=== PATIENT | female | born 1975 | race Caucasian/White ===

== ENCOUNTER 2017-06-27 12:09 | Emergency (ER) | payer MEDICAID ==
[2017-06-27 12:53] VITALS: BP 136/74
--- NOTE | 2017-06-27 13:41 | EDM.PDOC ---
[id number] [id number] WHOLE BODY ACHES FEVER Time Seen by Provider: 06/27/17 13:10 Source of Information: Reports: Patient, Family History Limitations: Reports: No Limitations - History of Present Illness INITIAL COMMENTS - FREE TEXT/NARRATIVE: 41-year-old female that has had intermittent fevers for the past 2 weeks. Aches all over but no specific complaints such as sore throat, cough, shortness of breath, abdominal pain, rashes or joint swelling. She had one emesis last night. She is otherwise healthy. Onset: Unknown/Unsure Severity: Moderate Associated Symptoms: Reports: Fever/Chills, Headaches, Loss of Appetite, Malaise , Nausea/Vomiting. 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 History: Reports: Fracture - Infectious Disease History Infectious Disease History: Reports: Chicken Pox, Shingles - Past Surgical History Female Surgical History: Reports: Section Social & Family History - Tobacco Use Smoking Status *Q: Never Smoker Second Hand Smoke Exposure: No - Caffeine Use Caffeine Use: Reports: Coffee - Alcohol Use Days Per Week of Alcohol Use: 0 - Recreational Drug Use Recreational Drug Use: No ED ROS GENERAL - Review of Systems Review Of Systems: See Below Constitutional: Reports: Fever, Chills, Malaise, Weakness HEENT: Denies: Throat Pain Respiratory: Denies: Shortness of Breath, Cough Cardiovascular: Denies: Chest Pain GI/Abdominal: Reports: Nausea, Vomiting. Denies: Abdominal Pain : Reports: No Symptoms Musculoskeletal: Reports: Muscle Pain Skin: Denies: Rash Neurological: Reports: Headache ED EXAM, GENERAL - Physical Exam Exam: See Below Exam Limited By: No Limitations General Appearance: Alert, No Apparent Distress Eye Exam: Bilateral Eye: Normal Inspection Throat/Mouth: Normal Inspection Head: Atraumatic Neck: Normal Inspection. No: Lymphadenopathy (R), Lymphadenopathy (L) Respiratory/Chest: No Respiratory Distress, Lungs Clear Cardiovascular: Regular Rate, Rhythm GI/Abdominal: Soft, Non-Tender Extremities: Normal Inspection. No: Pedal Edema Neurological: Alert, Oriented, No Motor/Sensory Deficits Psychiatric: Normal Affect, Normal Mood Skin Exam: Warm, Dry Course - Vital Signs Last Recorded V/S: Last Vital Signs Temp 98.6 F 06/27/17 13:08 Pulse 85 06/27/17 13:08 Resp 16 06/27/17 13:08 BP 136/74 06/27/17 13:08 Pulse Ox 95 06/27/17 13:08 - Orders/Labs/Meds Orders: Active Orders 24 hr Category Date Time Status CULTURE STREP A CONFIRMATION [RM] Routine Lab 06/27/17 13:38 Results EHRLICHIA CHAFFEENSIS, IGG&IGM [REF] Stat Lab 06/27/17 14:25 Received LYME AB SCREEN RFLX [REF] Stat Lab 06/27/17 14:25 Received STREP SCRN A RAPID W CULT CONF [RM] Routine Lab 06/27/17 13:38 Results Labs: Laboratory Tests 06/27/17 06/27/17 Range/Units 13:47 13:47 WBC 3.9 L (4.5-11.0) K/uL RBC 4.07 (3.30-5.50) M/uL Hgb 11.9 L (12.0-15.0) g/dL Hct 35.6 L (36.0-48.0) % MCV 88 (80-98) fL MCH 29 (27-31) pg MCHC 33 (32-36) % Plt Count 265 (150-400) K/uL Neut % (Auto) 81 H (36-66) % Lymph % (Auto) 12 L (24-44) % Martin % (Auto) 6 (2-6) % Eos % (Auto) 0 L (2-4) % Baso % (Auto) 1 (0-1) % Sodium 137 L (140-148) mmol/L Potassium 3.8 (3.6-5.2) mmol/L Chloride 103 (100-108) mmol/L Carbon Dioxide 28 (21-32) mmol/L Anion Gap 9.8 (5.0-14.0) mmol/L BUN 14 (7-18) mg/dL Creatinine 0.8 (0.6-1.0) mg/dL Est Cr Clr Drug Dosing 98.05 mL/min Estimated GFR (MDRD) > 60 (>60) Glucose 86 (74-106) mg/dL Calcium 8.3 L (8.5-10.1) mg/dL Total Bilirubin 0.6 (0.2-1.0) mg/dL AST 25 (15-37) U/L ALT 28 (12-78) U/L Alkaline Phosphatase 72 (46-116) U/L Total Protein 7.4 (6.4-8.2) g/dL Albumin 3.3 L (3.4-5.0) g/dL Globulin 4.1 H (2.3-3.5) g/dL Albumin/Globulin Ratio 0.8 L (1.2-2.2) - Re-Assessments/Exams Free Text/Narrative Re-Assessment/Exam: 06/27/17 13:40 Rapid strep was obtained, along with a CBC and CMP. 06/27/17 14:23 Patient remained afebrile. Strep was negative, CBC was remarkable only and her white count was low at 3.7, platelets were normal. CMP was normal, liver enzymes were normal. Patient likely has a viral syndrome and will improve with time, no treatment is necessary at this time. Departure - Departure Time of Disposition: 14:35 Disposition: Home, Self-Care 01 Condition: Good Clinical Impression: Viral syndrome, Myalgia - Discharge Information Instructions: Muscle Pain, Adult Referrals: Sky Mares MD [Primary Care Provider] - Forms: ED Department Discharge Care Plan Goals: Rest, fluids, a regular dose of ibuprofen or naproxen should help. Return anytime if worsening. We will be in touch with your additional tests when available. - My Orders Last 24 Hours: My Active Orders 06/27/17 13:38 CULTURE STREP A CONFIRMATION [RM] Routine STREP SCRN A RAPID W CULT CONF [RM] Routine 06/27/17 14:25 EHRLICHIA CHAFFEENSIS, IGG&IGM [REF] Stat LYME AB SCREEN RFLX [REF] Stat - Assessment/Plan Last 24 Hours: My Active Orders 06/27/17 13:38 CULTURE STREP A CONFIRMATION [RM] Routine STREP SCRN A RAPID W CULT CONF [RM] Routine 06/27/17 14:25 EHRLICHIA CHAFFEENSIS, IGG&IGM [REF] Stat LYME AB SCREEN RFLX [REF] Stat
== END 2017-06-27 14:36 | disposition home or self-care (01) ==
LOC: JP.ED 12:09
DX: M79.1 Myalgia (principal); B34.9 Viral infection, unspecified
CPT/HCPCS: 36415; 80053; 85025; 86618; 86666; 86666-59; 87081; 87430; 99284

== ENCOUNTER 2017-08-28 15:05 | Emergency (ER) | payer MEDICAID ==
[2017-08-28 16:28] VITALS: BP 145/91
--- NOTE | 2017-08-28 17:07 | EDM.PDOC ---
ED HPI GENERAL MEDICAL PROBLEM - General Chief Complaint: Genitourinary Problem Stated Complaint: UTI Time Seen by Provider: 08/28/17 16:45 Source of Information: Reports: Patient History Limitations: Reports: No Limitations - History of Present Illness INITIAL COMMENTS - FREE TEXT/NARRATIVE: Makenzie is an otherwise healthy 41-year-old female who presents to the emergency department today with 2 day history of pelvic pain and dysuria. Patient denies any fever, chills, nausea, vomiting. Patient has been staying well-hydrated. Patient reports that this is her fourth urinary tract infection in the last year which is unusual for her. Patient denies any vaginal bleeding or discharge. 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 ED EXAM, RENAL/ - Physical Exam Exam: See Below Exam Limited By: No Limitations General Appearance: Alert, WD/WN, No Apparent Distress Respiratory/Chest: No Respiratory Distress Cardiovascular: Normal Peripheral Pulses GI/Abdominal: Normal Bowel Sounds, Soft, Non-Tender (Female) Exam: Other (Right CVA tenderness, mild) Extremities: Normal Inspection Neurological: Alert, Oriented, CN II-XII Intact Psychiatric: Normal Affect, Normal Mood Skin Exam: Warm, Dry, Intact Course - Vital Signs Last Recorded V/S: Last Vital Signs Temp 36.7 C 08/28/17 16:27 Pulse 66 08/28/17 16:27 Resp 14 08/28/17 16:27 BP 145/91 H 08/28/17 16:27 Pulse Ox 98 08/28/17 16:27 Makenzie is an otherwise healthy 41-year-old female who presents to the emergency department today with 2 day history of dysuria and pelvic pain. Patient on exam is well-hydrated, she is nontoxic appearing. Urinalysis does confirm UTI with moderate leukocytes esterase and packed WBCs. Urine culture is pending. Prior urine culture back in April was found to be contaminated in no sensitivities were obtained. I am going to start patient on a 5 day course of ciprofloxacin pending urine culture today. She can follow-up with her primary care provider early this next week, hydration was encouraged, reasons to return to the emergency department were discussed, patient was agreeable and discharged in stable condition. - Orders/Labs/Meds Orders: Active Orders 24 hr Category Date Time Status CULTURE URINE [RM] Stat Lab 08/28/17 16:55 Received Labs: Laboratory Tests 08/28/17 Range/Units 16:15 Urine Color Yellow Urine Appearance Cloudy Urine pH 5.0 (4.5-8.0) Ur Specific Tucker 1.030 (1.008-1.030) Urine Protein 30 H (NEGATIVE) mg/dL Urine Glucose (UA) Normal (NEGATIVE) mg/dL Urine Ketones Negative (NEGATIVE) mg/dL Urine Occult Blood Large (NEGATIVE) Urine Nitrite Negative (NEGATIVE) Urine Bilirubin Negative (NEGATIVE) Urine Urobilinogen Normal (NORMAL) mg/dL Ur Leukocyte Esterase Moderate (NEGATIVE) Urine RBC 5-10 H (0-5) Urine WBC Semi-packed H (0-5) Ur Epithelial Cells Few Amorphous Sediment Not seen Urine Bacteria Many Urine Mucus Few Departure - Departure Time of Disposition: 17:30 Disposition: Home, Self-Care 01 Condition: Good Clinical Impression: UTI, Urinary tract infectious disease - Discharge Information Instructions: Urinary Tract Infection, Adult, [id number] Referrals: Sky Mares MD [Primary Care Provider] - Additional Instructions: Makenzie, your urine culture from April was contaminated and did not come back with any sensitivities that would guide antibiotic coverage. I am going to start you on a 5 day course of ciprofloxacin, if your urine culture from today returns that this is not the antibiotic you should be on, you will get a phone call and antibiotics will be switched at that time. Make sure you are staying very well-hydrated, I would recommend a daily probiotic. I would recommend he following up with your primary care provider early this next week. - My Orders Last 24 Hours: My Active Orders 08/28/17 16:55 CULTURE URINE [RM] Stat - Assessment/Plan Last 24 Hours: My Active Orders 08/28/17 16:55 CULTURE URINE [RM] Stat
== END 2017-08-28 17:26 | disposition home or self-care (01) ==
LOC: JP.ED 15:05
DX: N39.0 Urinary tract infection, site not specified (principal)
CPT/HCPCS: 81001; 87086; 87088; 87186; 99284

== ENCOUNTER 2017-10-27 23:58 | Emergency (ER) | payer MEDICAID ==
[2017-10-28] MEDS ORDERED: Acetaminophen 325 MG Tab PO ONE (01:11)
--- NOTE | 2017-10-28 01:12 | EDM.PDOC ---
ED HPI GENERAL MEDICAL PROBLEM - General Chief Complaint: ENT Problem Stated Complaint: POSSIBLE STREP Time Seen by Provider: 10/28/17 01:08 Source of Information: Reports: Patient History Limitations: Reports: No Limitations - History of Present Illness INITIAL COMMENTS - FREE TEXT/NARRATIVE: pt arrived with a sore throat. She has shaking chills. She has body aches. She has a slight cough. Onset: Other ( last nite she began to feel ill. 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 - Infectious Disease History Infectious Disease History: Reports: Chicken Pox, Shingles - Past Surgical History Female Surgical History: Reports: Section Social & Family History - Tobacco Use Smoking Status *Q: Unknown Ever Smoked Second Hand Smoke Exposure: No - Caffeine Use Caffeine Use: Reports: Coffee - Alcohol Use Days Per Week of Alcohol Use: 0 - Recreational Drug Use Recreational Drug Use: No ED ROS ENT - Review of Systems Review Of Systems: See Below Constitutional: Reports: Chills, Malaise HEENT: Reports: Throat Pain Respiratory: Reports: Cough Cardiovascular: Reports: No Symptoms Endocrine: Reports: No Symptoms GI/Abdominal: Reports: No Symptoms : Reports: No Symptoms Musculoskeletal: Reports: No Symptoms Skin: Reports: No Symptoms ED EXAM, ENT - Physical Exam Exam: See Below Text/Narrative:: pt arrived with chills and body aches. She has a sore throat. She has a slight cough. Exam Limited By: No Limitations General Appearance: Alert, Mild Distress Ears: Normal TMs Nose: Normal Inspection Mouth/Throat: Pharyngeal Erythema, Throat Swelling Head: Atraumatic Neck: Lymphadenopathy (R), Lymphadenopathy (L) Respiratory/Chest: No Respiratory Distress Cardiovascular: Regular Rate, Rhythm GI/Abdominal: Soft, Non-Tender (Female) Exam: Deferred Rectal (Female) Exam: Deferred Back: Normal Inspection Extremities: Normal Inspection Neurological: Alert, Oriented, Normal Cognition Psychiatric: Normal Affect Course - Vital Signs Last Recorded V/S: Last Vital Signs Temp 38.1 C 10/28/17 01:48 Pulse 100 10/28/17 01:48 Resp 14 10/28/17 01:48 BP 126/74 10/28/17 01:48 Pulse Ox 94 L 10/28/17 01:48 - Orders/Labs/Meds Orders: Active Orders 24 hr Category Date Time Status STREP SCRN A RAPID W CULT CONF [RM] Stat Lab 10/28/17 01:15 Results Labs: Laboratory Tests 10/28/17 Range/Units 00:40 WBC 5.4 (4.5-11.0) K/uL RBC 4.15 (3.30-5.50) M/uL Hgb 12.3 (12.0-15.0) g/dL Hct 36.4 (36.0-48.0) % MCV 88 (80-98) fL MCH 30 (27-31) pg MCHC 34 (32-36) % Plt Count 199 (150-400) K/uL Neut % (Auto) 69 H (36-66) % Lymph % (Auto) 17 L (24-44) % Alger % (Auto) 13 H (2-6) % Eos % (Auto) 1 L (2-4) % Baso % (Auto) 0 (0-1) % Meds: Medications Discontinued Medications Generic Name Dose Route Start Last Admin Trade Name Davionq PRN Reason Stop Dose Admin Acetaminophen 650 mg 10/28/17 01:11 10/28/17 01:47 Tylenol PO 10/28/17 01:12 650 mg NOW ONE Administration Ceftriaxone Sodium 1 gm/ 0 gm 10/28/17 01:48 Lidocaine HCl 2.1 ml IM 10/28/17 01:49 ONETIME ONE - Re-Assessments/Exams Free Text/Narrative Re-Assessment/Exam: 10/28/17 01:53 pt had a normal wbc and she had a positive strept. She was given rocephen 1 gm im. Departure - Departure Time of Disposition: 01:54 Disposition: Home, Self-Care 01 Condition: Fair Clinical Impression: Streptococcus pharyngitis - Discharge Information Referrals: Sky Mares MD [Primary Care Provider] - Forms: ED Department Discharge Care Plan Goals: push fluids, tylenol for elevated temp, amoxicillin 500mg 2 tabs bid. - My Orders Last 24 Hours: My Active Orders 10/28/17 01:15 STREP SCRN A RAPID W CULT CONF [RM] Stat - Assessment/Plan Last 24 Hours: My Active Orders 10/28/17 01:15 STREP SCRN A RAPID W CULT CONF [RM] Stat
[2017-10-28] MEDS ORDERED: cefTRIAXone 1 GM, Lidocaine 1% 2.1 ML IM ONE ×2 (01:48)
[2017-10-28 01:50] VITALS: BP 126/74
== END 2017-10-28 02:02 | disposition home or self-care (01) ==
LOC: JP.ED 23:58
DX: J02.0 Streptococcal pharyngitis (principal)
CPT/HCPCS: 36415; 85025; 87430; 96372; 99283; A9270; J0696

== ENCOUNTER 2017-12-09 23:17 | Emergency (ER) | payer MEDICAID ==
[2017-12-09] MEDS ORDERED: Lactated Ringers 1,000 ML IV ONE (23:49)
[2017-12-09] MEDS ORDERED: Metoclopramide 10 MG/2 ML SDV IVPUSH ONE (23:49)
[2017-12-09 23:50] VITALS: BP 137/76
[2017-12-09] MEDS ORDERED: Acetaminophen 500 MG Tab PO ONE (23:50)
--- NOTE | 2017-12-09 23:56 | EDM.PDOC ---
ED HPI GENERAL MEDICAL PROBLEM - General Chief Complaint: Gastrointestinal Problem Stated Complaint: NAUSEA / VOMITING Time Seen by Provider: 12/09/17 23:40 Source of Information: Reports: Patient, RN History Limitations: Reports: No Limitations - History of Present Illness INITIAL COMMENTS - FREE TEXT/NARRATIVE: 42 yo female presents with nausea and vomiting. Not able to keep much down today. No diarrhea or fever. Is 6 weeks . Nausea has progressed for the past week. Has not discussed with her primary. Is a little dizzy with standing and states her urine is dark. Onset: Gradual Onset Date: 12/02/17 Duration: Day(s):, Getting Worse Location: Reports: Abdomen Quality: Reports: Other (Intermittent RLQ cramping) Severity: Mild Improves with: Reports: None Worsens with: Reports: Other (coughing) Context: Reports: Other (6 weeks ) Associated Symptoms: Reports: Headaches, Nausea/Vomiting. 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 - Infectious Disease History Infectious Disease History: Reports: Chicken Pox, Shingles - Past Surgical History HEENT Surgical History: Reports: Cataract Surgery Female Surgical History: Reports: Section Social & Family History - Tobacco Use Smoking Status *Q: Former Smoker Used Tobacco, but Quit: Yes Month Tobacco Last Used: 25 years Second Hand Smoke Exposure: No - Caffeine Use Caffeine Use: Reports: Coffee - Alcohol Use Days Per Week of Alcohol Use: 0 - Recreational Drug Use Recreational Drug Use: No ED ROS GENERAL - Review of Systems Review Of Systems: See Below Constitutional: Reports: No Symptoms HEENT: Reports: No Symptoms Respiratory: Reports: No Symptoms Cardiovascular: Reports: Lightheadedness (with standing) Endocrine: Reports: No Symptoms GI/Abdominal: Reports: Abdominal Pain (mild, intermittent, RLQ cramping), Nausea , Vomiting. Denies: Black Stool, Bloody Stool, Constipation, Diarrhea, Distension, Hematochezia, Melena : Reports: No Symptoms Musculoskeletal: Reports: No Symptoms Skin: Reports: No Symptoms Neurological: Reports: No Symptoms ED EXAM, GI/ABD - Physical Exam Exam: See Below Exam Limited By: No Limitations General Appearance: Alert, WD/WN, No Apparent Distress Eyes: Bilateral: Normal Appearance Ears: Normal External Exam, Normal Canal, Hearing Grossly Normal, Normal TMs Nose: Normal Inspection, Normal Mucosa, No Blood Throat/Mouth: Normal Inspection, Normal Lips, Normal Oropharynx, Normal Voice, No Airway Compromise Head: Atraumatic, Normocephalic Neck: Normal Inspection, Supple Respiratory/Chest: No Respiratory Distress, Lungs Clear, Normal Breath Sounds, No Accessory Muscle Use Cardiovascular: Regular Rate, Rhythm GI/Abdominal Exam: Normal Bowel Sounds, Soft, No Distention, Tender (mild RLQ tenderness), Other (gravid) Back Exam: Normal Inspection. No: CVA Tenderness (R), CVA Tenderness (L) Extremities: Normal Inspection, Normal Range of Motion, Non-Tender, No Pedal Edema Neurological: Alert, Oriented, CN II-XII Intact, Normal Cognition, No Motor/ Sensory Deficits Psychiatric: Normal Affect, Normal Mood Skin Exam: Warm, Dry, Intact, Normal Color, No Rash Lymphatic: No Adenopathy Course - Vital Signs Text/Narrative:: LR 1000 ml IV, Reglan 10 mg IV, acetaminophen 1000 mg po, KCL 20 meq po Last Recorded V/S: Last Vital Signs Temp 37.1 C 12/09/17 23:31 Pulse 75 12/09/17 23:31 Resp 20 12/09/17 23:31 BP 137/76 12/09/17 23:31 Pulse Ox 100 12/09/17 23:31 - Orders/Labs/Meds Orders: Active Orders 24 hr Category Date Time Status Lactated Ringers [Ringers, Lactated] 1,000 ml Med 12/09/17 23:49 Active IV BOLUS Potassium Chloride [Klor-Con M20] Med 12/10/17 00:15 Once 20 meq PO ONETIME ONE Medication Orders Lactated Ringer's (Ringers, Lactated) 1,000 mls @ 1,000 mls/hr IV BOLUS ONE Stop: 12/10/17 00:48 Last Admin: 12/10/17 00:04 Dose: 1,000 mls/hr Labs: Laboratory Tests 12/09/17 12/09/17 Range/Units 23:58 23:58 WBC 6.8 (4.5-11.0) K/uL RBC 4.34 (3.30-5.50) M/uL Hgb 13.0 (12.0-15.0) g/dL Hct 37.4 (36.0-48.0) % MCV 86 (80-98) fL MCH 30 (27-31) pg MCHC 35 (32-36) % Plt Count 245 (150-400) K/uL Sodium 138 L (140-148) mmol/L Potassium 3.4 L (3.6-5.2) mmol/L Chloride 103 (100-108) mmol/L Carbon Dioxide 24 (21-32) mmol/L Anion Gap 14.4 H (5.0-14.0) mmol/L BUN 16 (7-18) mg/dL Creatinine 0.7 (0.6-1.0) mg/dL Est Cr Clr Drug Dosing 110.90 mL/min Estimated GFR (MDRD) > 60 (>60) Glucose 139 H (74-106) mg/dL Calcium 8.4 L (8.5-10.1) mg/dL Meds: Medications Generic Name Dose Route Start Last Admin Trade Name Freq PRN Reason Stop Dose Admin Lactated Ringer's 1,000 mls @ 1,000 mls/hr 12/09/17 23:49 12/10/17 00:04 Ringers, Lactated IV 12/10/17 00:48 1,000 mls/hr BOLUS ONE Administration Discontinued Medications Generic Name Dose Route Start Last Admin Trade Name Freq PRN Reason Stop Dose Admin Acetaminophen 1,000 mg 12/09/17 23:50 Tylenol Extra Strength PO 12/09/17 23:51 ONETIME ONE Metoclopramide HCl 10 mg 12/09/17 23:49 12/10/17 00:05 Reglan IVPUSH 12/09/17 23:50 10 mg ONETIME ONE Administration Departure - Departure Time of Disposition: 01:05 Disposition: Home, Self-Care 01 Condition: Fair Clinical Impression: Nausea and vomiting Qualifiers: Vomiting type: unspecified Vomiting Intractability: non-intractable Qualified Code(s): R11.2 - Nausea with vomiting, unspecified - Discharge Information Referrals: Sky Mares MD [Primary Care Provider] - Forms: ED Department Discharge - My Orders Last 24 Hours: My Active Orders 12/09/17 23:49 Lactated Ringers [Ringers, Lactated] 1,000 ml IV BOLUS 12/10/17 00:15 Potassium Chloride [Klor-Con M20] 20 meq PO ONETIME ONE - Assessment/Plan Last 24 Hours: My Active Orders 12/09/17 23:49 Lactated Ringers [Ringers, Lactated] 1,000 ml IV BOLUS 12/10/17 00:15 Potassium Chloride [Klor-Con M20] 20 meq PO ONETIME ONE
[2017-12-10] MEDS ORDERED: Potassium Chloride 20 MEQ Tab.ER PO ONE (00:15)
== END 2017-12-10 01:15 | disposition home or self-care (01) ==
LOC: JP.ED 23:17
DX: R11.2 Nausea with vomiting, unspecified (principal); Z87.891 Personal history of nicotine dependence
CPT/HCPCS: 36415; 80048; 85027; 96361; 96374; 99284; A9270; J2765; J7120

== ENCOUNTER 2017-12-17 22:13 | Emergency (ER) | payer MEDICAID ==
[2017-12-17] MEDS ORDERED: Sodium Chloride 0.9% 10 ML Syringe FLUSH PRN (23:05)
[2017-12-17] MEDS ORDERED: Ondansetron 4 MG/2 ML SDV IVPUSH ONE (23:05)
[2017-12-17] MEDS ORDERED: Lactated Ringers 1,000 ML IV ONE (23:05)
--- NOTE | 2017-12-17 23:13 | EDM.PDOC ---
ED HPI GENERAL MEDICAL PROBLEM - General Chief Complaint: Abdominal Pain Stated Complaint: FLU? Time Seen by Provider: 12/17/17 22:50 Source of Information: Reports: Patient, RN Notes Reviewed History Limitations: Reports: No Limitations - History of Present Illness INITIAL COMMENTS - FREE TEXT/NARRATIVE: 42-year-old female presents emergency department today plate nausea and vomiting with abdominal cramping she estimates she is about 7 weeks she has not had her first OB appointment, she is a Abdomen Pain Score (Numeric/FACES): 2 - Related Data Allergies Allergy/AdvReac Type Severity Reaction Status Date / Time No Known Allergies Allergy Verified 12/17/17 22:36 Home Meds: Home Meds Doxylamine Succinate [Unisom Sleep Aid] 25 mg PO BEDTIME PRN 12/17/17 [History] Ondansetron [Zofran ODT] 4 mg PO Q6H PRN 12/17/17 [History] Pyridoxine HCl [Vitamin B-6] 100 mg PO DAILY 12/17/17 [History] Past Medical History HEENT History: Reports: Cataract, Impaired 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 - Infectious Disease History Infectious Disease History: Reports: Chicken Pox - Past Surgical History HEENT Surgical History: Reports: Cataract Surgery Female Surgical History: Reports: Section Social & Family History - Tobacco Use Smoking Status *Q: Former Smoker Used Tobacco, but Quit: Yes Month Tobacco Last Used: 25 years Second Hand Smoke Exposure: No - Caffeine Use Caffeine Use: Reports: Coffee - Alcohol Use Days Per Week of Alcohol Use: 0 - Recreational Drug Use Recreational Drug Use: No ED ROS GENERAL - Review of Systems Review Of Systems: See Below Constitutional: Reports: No Symptoms HEENT: Reports: No Symptoms Respiratory: Reports: No Symptoms Cardiovascular: Reports: No Symptoms GI/Abdominal: Reports: Abdominal Pain, Nausea, Vomiting : Reports: No Symptoms Musculoskeletal: Reports: No Symptoms ED EXAM - Physical Exam Exam: See Below Exam Limited By: No Limitations General Appearance: Alert, WD/WN, No Apparent Distress Eye Exam: Bilateral Eye: Normal Inspection, PERRL Ears: Normal External Exam, Normal Canal, Hearing Grossly Normal, Normal TMs Nose: Normal Inspection, Normal Mucosa, No Blood Throat/Mouth: Normal Inspection, Normal Lips, Normal Teeth, Normal Gums, Normal Oropharynx, Normal Voice, No Airway Compromise Head: Atraumatic, Normocephalic Neck: Normal Inspection, Supple, Non-Tender, Full Range of Motion Respiratory/Chest: No Respiratory Distress, Lungs Clear, Normal Breath Sounds, No Accessory Muscle Use Cardiovascular: Regular Rate, Rhythm, No Murmur GI/Abdominal Exam: Soft, Non-Tender Heart Tones: Not [place] Course - Vital Signs Last Recorded V/S: Last Vital Signs Temp 97.3 F 12/17/17 22:44 Pulse 63 12/18/17 01:30 Resp 16 12/18/17 01:30 BP 105/64 12/18/17 01:30 Pulse Ox 96 12/18/17 01:30 - Orders/Labs/Meds Orders: Active Orders 24 hr Category Date Time Status Peripheral IV Care [RC] . DIRECTED Care 12/17/17 23:05 Active Sodium Chloride 0.9% [Saline Flush] Med 12/17/17 23:05 Active 10 ml FLUSH ASDIRECTED PRN Peripheral IV Insertion Adult [OM.PC] Urgent Oth 12/17/17 23:05 Ordered Medication Orders Sodium Chloride (Saline Flush) 10 ml FLUSH ASDIRECTED PRN PRN Reason: Keep Vein Open Labs: Laboratory Tests 12/17/17 12/17/17 12/17/17 Range/Units 23:20 23:20 23:20 WBC 8.4 (4.5-11.0) K/uL RBC 4.38 (3.30-5.50) M/uL Hgb 13.6 (12.0-15.0) g/dL Hct 37.4 (36.0-48.0) % MCV 85 (80-98) fL MCH 31 (27-31) pg MCHC 36 (32-36) % Plt Count 217 (150-400) K/uL Neut % (Auto) 76 H (36-66) % Lymph % (Auto) 15 L (24-44) % [place] % (Auto) 7 H (2-6) % Eos % (Auto) 1 L (2-4) % Baso % (Auto) 0 (0-1) % Sodium 138 L (140-148) mmol/L Potassium 3.8 (3.6-5.2) mmol/L Chloride 103 (100-108) mmol/L Carbon Dioxide 21 (21-32) mmol/L Anion Gap 17.8 H (5.0-14.0) mmol/L BUN 13 (7-18) mg/dL Creatinine 0.6 (0.6-1.0) mg/dL Est Cr Clr Drug Dosing TNP Estimated GFR (MDRD) > 60 (>60) Glucose 71 L (74-106) mg/dL Calcium 8.6 (8.5-10.1) mg/dL HCG, Quant 309979 H (0-6) mIU/mL Urine Color Urine Appearance Urine pH (4.5-8.0) Ur Specific [place] (1.008-1.030) Urine Protein (NEGATIVE) mg/dL Urine Glucose (UA) (NEGATIVE) mg/dL Urine Ketones (NEGATIVE) mg/dL Urine Occult Blood (NEGATIVE) Urine Nitrite (NEGATIVE) Urine Bilirubin (NEGATIVE) Urine Urobilinogen (NORMAL) mg/dL Ur Leukocyte Esterase (NEGATIVE) Urine RBC (0-5) Urine WBC (0-5) Ur Epithelial Cells Amorphous Sediment Urine Bacteria Urine Mucus 12/18/17 Range/Units 01:08 WBC (4.5-11.0) K/uL RBC (3.30-5.50) M/uL Hgb (12.0-15.0) g/dL Hct (36.0-48.0) % MCV (80-98) fL MCH (27-31) pg MCHC (32-36) % Plt Count (150-400) K/uL Neut % (Auto) (36-66) % Lymph % (Auto) (24-44) % [place] % (Auto) (2-6) % Eos % (Auto) (2-4) % Baso % (Auto) (0-1) % Sodium (140-148) mmol/L Potassium (3.6-5.2) mmol/L Chloride (100-108) mmol/L Carbon Dioxide (21-32) mmol/L Anion Gap (5.0-14.0) mmol/L BUN (7-18) mg/dL Creatinine (0.6-1.0) mg/dL Est Cr Clr Drug Dosing Estimated GFR (MDRD) (>60) Glucose (74-106) mg/dL Calcium (8.5-10.1) mg/dL HCG, Quant (0-6) mIU/mL Urine Color Yellow Urine Appearance Cloudy Urine pH 6.0 (4.5-8.0) Ur Specific [place] 1.020 (1.008-1.030) Urine Protein Negative (NEGATIVE) mg/dL Urine Glucose (UA) Normal (NEGATIVE) mg/dL Urine Ketones 50 H (NEGATIVE) mg/dL Urine Occult Blood Negative (NEGATIVE) Urine Nitrite Negative (NEGATIVE) Urine Bilirubin Negative (NEGATIVE) Urine Urobilinogen Normal (NORMAL) mg/dL Ur Leukocyte Esterase Negative (NEGATIVE) Urine RBC 0-5 (0-5) Urine WBC 0-5 (0-5) Ur Epithelial Cells Moderate Amorphous Sediment Not seen Urine Bacteria Moderate Urine Mucus Moderate Meds: Medications Generic Name Dose Route Start Last Admin Trade Name Freq PRN Reason Stop Dose Admin Sodium Chloride 10 ml 12/17/17 23:05 Saline Flush FLUSH ASDIRECTED PRN Keep Vein Open Discontinued Medications Generic Name Dose Route Start Last Admin Trade Name Freq PRN Reason Stop Dose Admin Lactated Ringer's 1,000 mls @ 999 mls/hr 12/17/17 23:05 12/17/17 23:20 Ringers, Lactated IV 12/18/17 00:05 999 mls/hr BOLUS ONE Administration Lactated Ringer's 1,000 mls @ 999 mls/hr 12/18/17 03:03 12/18/17 03:14 Ringers, Lactated IV 12/18/17 04:03 999 mls/hr BOLUS ONE Administration Metoclopramide HCl 10 mg 12/18/17 03:03 12/18/17 03:43 Reglan PO 12/18/17 03:04 10 mg ONETIME ONE Administration Ondansetron HCl 4 mg 12/17/17 23:05 12/17/17 23:23 Zofran IVPUSH 12/17/17 23:06 4 mg ONETIME ONE Administration Departure - Departure Time of Disposition: 05:53 Disposition: Home, Self-Care 01 Condition: Fair Clinical Impression: Nausea and vomiting Qualifiers: Vomiting type: unspecified Vomiting Intractability: non-intractable Qualified Code(s): R11.2 - Nausea with vomiting, unspecified Qualifiers: Weeks of gestation: less than 8 weeks Qualified Code(s): Z3A.01 - Less than 8 weeks gestation of - Discharge Information Referrals: Sky Mares MD [Primary Care Provider] - Forms: ED Department Discharge Additional Instructions: Continue to use Zofran as provided for nausea and vomiting symptoms Please followup with your primary care provider on Wednesday, please call return to the emergency department with worsening of symptoms. - My Orders Last 24 Hours: My Active Orders 12/17/17 23:05 Peripheral IV Care [RC] . DIRECTED Sodium Chloride 0.9% [Saline Flush] 10 ml FLUSH ASDIRECTED PRN Peripheral IV Insertion Adult [OM.PC] Urgent - Assessment/Plan Last 24 Hours: My Active Orders 12/17/17 23:05 Peripheral IV Care [RC] . DIRECTED Sodium Chloride 0.9% [Saline Flush] 10 ml FLUSH ASDIRECTED PRN Peripheral IV Insertion Adult [OM.PC] Urgent Plan: Assessment Acuity = acute Site and laterality = nausea and vomiting complicated in first trimester Etiology = probably related to Manifestations = dehydration Location of injury = Home Lab values = CBC, CMP unremarkable quantitative beta hCG consistent with progressive , urinalysis consistent with intravascular volume depletion specific gravity 1.02 Plan She had some improvement with combination Zofran 2 L fluids and Reglan but is still feeling nauseated, she is willing to go home she has a follow-up appointment with her primary care on Wednesday will return to the emergency department if no improvement This note was dictated using [employer] voice recognition software please call with any questions on syntax or jah.
[2017-12-18] MEDS ORDERED: Lactated Ringers 1,000 ML IV ONE (03:03)
[2017-12-18] MEDS ORDERED: Metoclopramide 10 MG Tab PO ONE (03:03)
[2017-12-18 06:36] VITALS: BP 104/64
== END 2017-12-18 06:36 | disposition home or self-care (01) ==
LOC: JP.ED 22:13
DX: O21.9 Vomiting of pregnancy, unspecified (principal); Z87.891 Personal history of nicotine dependence; Z79.899 Other long term (current) drug therapy; Z3A.01 Less than 8 weeks gestation of pregnancy
CPT/HCPCS: 36415; 80048; 81001; 84702; 85025; 96361; 96374; 99284; A9270; J2405; J7120

== ENCOUNTER 2017-12-26 18:24 | Emergency (ER) | payer MEDICAID ==
[2017-12-26 18:59] VITALS: BP 131/74
[2017-12-26] MEDS ORDERED: Ondansetron 4 MG/2 ML SDV IVPUSH ONE ×2 (19:12→19:46)
[2017-12-26] MEDS ORDERED: Sodium Chloride 0.9% 1,000 ML IV SCH ×2 (19:15→20:00)
--- NOTE | 2017-12-26 19:47 | EDM.PDOC ---
ED HPI GENERAL MEDICAL PROBLEM - General Chief Complaint: Gastrointestinal Problem Stated Complaint: NAUSEA,VOMITING Time Seen by Provider: 12/26/17 18:55 Source of Information: Reports: Patient History Limitations: Reports: No Limitations - History of Present Illness INITIAL COMMENTS - FREE TEXT/NARRATIVE: pt is 9.5 weeks and she has marked vomiting with the . She has been hydrated in the past in the ER. Onset: Gradual Duration: Day(s): Location: Reports: Other ( hyperemesis of . 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 - Infectious Disease History Infectious Disease History: Reports: Chicken Pox - Past Surgical History HEENT Surgical History: Reports: Cataract Surgery Female Surgical History: Reports: Section Social & Family History - Tobacco Use Smoking Status *Q: Never Smoker Used Tobacco, but Quit: Yes Month Tobacco Last Used: 25 years Second Hand Smoke Exposure: No - Caffeine Use Caffeine Use: Reports: Coffee - Alcohol Use Days Per Week of Alcohol Use: 0 - Recreational Drug Use Recreational Drug Use: No ED ROS GENERAL - Review of Systems Review Of Systems: See Below Constitutional: Reports: No Symptoms HEENT: Reports: No Symptoms Respiratory: Reports: No Symptoms Cardiovascular: Reports: No Symptoms Endocrine: Reports: No Symptoms GI/Abdominal: Reports: Nausea, Vomiting, Other (Pt is 9.5 weeks . ) : Reports: No Symptoms Skin: Reports: No Symptoms Neurological: Reports: Dizziness ED EXAM - Physical Exam Exam: See Below Text/Narrative:: Pt arrived with a history of being 9,5 weeks and having hyperemesis of . She feels very dehydrated at this time. Exam Limited By: No Limitations General Appearance: Alert, Anxious, Other (pupils equal and reactive. ) Ears: Normal TMs Nose: Normal Inspection Throat/Mouth: Normal Inspection Head: Atraumatic Neck: Normal Inspection Respiratory/Chest: No Respiratory Distress Cardiovascular: Regular Rate, Rhythm, Tachycardia GI/Abdominal Exam: Soft, Other ( mild tenderness from vomiting. ) Rectal Exam: Deferred Back Exam: Normal Inspection Extremities: Normal Inspection Course - Vital Signs Last Recorded V/S: Last Vital Signs Temp 37.2 C 12/26/17 19:08 Pulse 82 12/26/17 19:08 Resp 14 12/26/17 19:08 BP 131/74 12/26/17 19:08 Pulse Ox 99 12/26/17 19:08 - Orders/Labs/Meds Orders: Active Orders 24 hr Category Date Time Status Fingers Second Digit Lt F1 [CR] Stat Exams 12/26/17 18:25 Stop Req CULTURE URINE [RM] Stat Lab 12/26/17 21:57 Uncollected Sodium Chloride 0.9% [Normal Saline] 1,000 ml Med 12/26/17 19:15 Active IV ASDIRECTED Sodium Chloride 0.9% [Normal Saline] 1,000 ml Med 12/26/17 20:00 Active IV ASDIRECTED cefTRIAXone [Rocephin] 1 gm Med 12/26/17 21:58 Active Sodium Chloride 0.9% [Normal Saline] 50 ml IV ONETIME Medication Orders Sodium Chloride (Normal Saline) 1,000 mls @ 999 mls/hr IV ASDIRECTED [facility] Last Admin: 12/26/17 19:21 Dose: 999 mls/hr Sodium Chloride (Normal Saline) 1,000 mls @ 999 mls/hr IV ASDIRECTED [facility] Last Admin: 12/26/17 19:58 Dose: 999 mls/hr Ceftriaxone Sodium 1 gm/ (Sodium Chloride) 50 mls @ 100 mls/hr IV ONETIME ONE Stop: 12/26/17 22:27 Labs: Laboratory Tests 12/26/17 12/26/17 12/26/17 Range/Units 20:00 20:00 21:31 WBC 9.2 (4.5-11.0) K/uL RBC 4.00 (3.30-5.50) M/uL Hgb 12.1 (12.0-15.0) g/dL Hct 35.1 L (36.0-48.0) % MCV 88 (80-98) fL MCH 30 (27-31) pg MCHC 35 (32-36) % Plt Count 190 (150-400) K/uL Neut % (Auto) 78 H (36-66) % Lymph % (Auto) 14 L (24-44) % [place] % (Auto) 7 H (2-6) % Eos % (Auto) 2 (2-4) % Baso % (Auto) 0 (0-1) % Sodium 137 L (140-148) mmol/L Potassium 4.0 (3.6-5.2) mmol/L Chloride 106 (100-108) mmol/L Carbon Dioxide 25 (21-32) mmol/L Anion Gap 10.0 (5.0-14.0) mmol/L BUN 15 (7-18) mg/dL Creatinine 0.7 (0.6-1.0) mg/dL Est Cr Clr Drug Dosing 110.90 mL/min Estimated GFR (MDRD) > 60 (>60) Glucose 74 (74-106) mg/dL Calcium 8.3 L (8.5-10.1) mg/dL Total Bilirubin 0.5 (0.2-1.0) mg/dL AST 18 (15-37) U/L ALT 16 (12-78) U/L Alkaline Phosphatase 48 (46-116) U/L Total Protein 6.1 L (6.4-8.2) g/dL Albumin 2.9 L (3.4-5.0) g/dL Globulin 3.2 (2.3-3.5) g/dL Albumin/Globulin Ratio 0.9 L (1.2-2.2) Urine Color [place] Urine Appearance Cloudy Urine pH 5.0 (4.5-8.0) Ur Specific [place] 1.020 (1.008-1.030) Urine Protein Negative (NEGATIVE) mg/dL Urine Glucose (UA) Normal (NEGATIVE) mg/dL Urine Ketones 15 H (NEGATIVE) mg/dL Urine Occult Blood Negative (NEGATIVE) Urine Nitrite Positive H (NEGATIVE) Urine Bilirubin Negative (NEGATIVE) Urine Urobilinogen Normal (NORMAL) mg/dL Ur Leukocyte Esterase Large (NEGATIVE) Urine RBC 0-5 (0-5) Urine WBC Packed H (0-5) Ur Epithelial Cells Moderate Amorphous Sediment Moderate Urine Bacteria Many Urine Mucus Moderate Meds: Medications Generic Name Dose Route Start Last Admin Trade Name Freq PRN Reason Stop Dose Admin Sodium Chloride 1,000 mls @ 999 mls/hr 12/26/17 19:15 12/26/17 19:21 Normal Saline IV 999 mls/hr ASDIRECTED GABE Administration Sodium Chloride 1,000 mls @ 999 mls/hr 12/26/17 20:00 12/26/17 19:58 Normal Saline IV 999 mls/hr ASDIRECTED GABE Administration Ceftriaxone Sodium 1 gm/ 50 mls @ 100 mls/hr 12/26/17 21:58 Sodium Chloride IV 12/26/17 22:27 ONETIME ONE Discontinued Medications Generic Name Dose Route Start Last Admin Trade Name Freq PRN Reason Stop Dose Admin Ondansetron HCl 4 mg 12/26/17 19:12 12/26/17 19:30 Zofran IVPUSH 12/26/17 19:13 4 mg ONETIME ONE Administration Ondansetron HCl 4 mg 12/26/17 19:46 12/26/17 19:58 Zofran IVPUSH 12/26/17 19:47 4 mg ONETIME ONE Administration - Re-Assessments/Exams Free Text/Narrative Re-Assessment/Exam: 12/26/58 pt vomiting markedly and not able to hold anything down. She has slight burning on urination. Departure - Departure Time of Disposition: 22:01 Disposition: Home, Self-Care 01 Condition: Fair Clinical Impression: UTI (urinary tract infection), Dehydration, 9 weeks gestation of - Discharge Information Referrals: Sky Mares MD [Primary Care Provider] - Forms: ED Department Discharge Care Plan Goals: amoxicillin 500mg tid, zoforan subling, appt with Dr Teran for possible hydration orders at the clinic. rtc tomorrow for another gram of rocephen. - My Orders Last 24 Hours: My Active Orders 12/26/17 18:25 Fingers Second Digit Lt F1 [CR] Stat 12/26/17 19:15 Sodium Chloride 0.9% [Normal Saline] 1,000 ml IV ASDIRECTED 12/26/17 20:00 Sodium Chloride 0.9% [Normal Saline] 1,000 ml IV ASDIRECTED 12/26/17 21:57 CULTURE URINE [RM] Stat 12/26/17 21:58 cefTRIAXone [Rocephin] 1 gm Sodium Chloride 0.9% [Normal Saline] 50 ml IV ONETIME - Assessment/Plan Last 24 Hours: My Active Orders 12/26/17 18:25 Fingers Second Digit Lt F1 [CR] Stat 12/26/17 19:15 Sodium Chloride 0.9% [Normal Saline] 1,000 ml IV ASDIRECTED 12/26/17 20:00 Sodium Chloride 0.9% [Normal Saline] 1,000 ml IV ASDIRECTED 12/26/17 21:57 CULTURE URINE [RM] Stat 12/26/17 21:58 cefTRIAXone [Rocephin] 1 gm Sodium Chloride 0.9% [Normal Saline] 50 ml IV ONETIME
[2017-12-26] MEDS ORDERED: cefTRIAXone 1 GM in Sodium Chloride 0.9% 50 ML IV ONE (21:58)
== END 2017-12-26 23:02 | disposition home or self-care (01) ==
LOC: JP.ED 18:24
DX: O21.1 Hyperemesis gravidarum with metabolic disturbance (principal); Z3A.09 9 weeks gestation of pregnancy; O23.41 Unspecified infection of urinary tract in pregnancy, first trimester; Z87.891 Personal history of nicotine dependence; Z79.899 Other long term (current) drug therapy
CPT/HCPCS: 36415; 80053; 81001; 85025; 87086; 87088; 87186; 96361; 96365; 96375; 96376; 99284; J0696; J2405; J7040; J7050; J7030

== ENCOUNTER 2017-12-28 00:12 | Emergency (ER) | payer MEDICAID ==
[2017-12-28 00:41] VITALS: BP 118/70
[2017-12-28] MEDS ORDERED: Ondansetron 4 MG/2 ML SDV IVPUSH ONE (00:46)
[2017-12-28] MEDS ORDERED: Sodium Chloride 0.9% 1,000 ML IV SCH (01:00)
--- NOTE | 2017-12-28 01:20 | EDM.PDOC ---
ED HPI GENERAL MEDICAL PROBLEM - General Chief Complaint: General Stated Complaint: ILLNESS Time Seen by Provider: 12/28/17 00:15 Source of Information: Reports: Patient, Family History Limitations: Reports: No Limitations - History of Present Illness INITIAL COMMENTS - FREE TEXT/NARRATIVE: 42-year-old female was seen last evening with persistent nausea and vomiting during early . She was found to have a UTI, and return tonight for some IV Rocephin as an outpatient. She still is having persistent nausea but no emesis today, but she still feels lightheaded and dehydrated and asked for fluid. No fevers or chills. Laboratory was reviewed from yesterday, a urine culture has gram-negative rods so the Rocephin should be an appropriate medication. 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 - Infectious Disease History Infectious Disease History: Reports: Chicken Pox - Past Surgical History HEENT Surgical History: Reports: Cataract Surgery Female Surgical History: Reports: Section Social & Family History - Tobacco Use Smoking Status *Q: Never Smoker Used Tobacco, but Quit: Yes Month Tobacco Last Used: 25 years Second Hand Smoke Exposure: No - Caffeine Use Caffeine Use: Reports: None - Alcohol Use Days Per Week of Alcohol Use: 0 - Recreational Drug Use Recreational Drug Use: No ED ROS GENERAL - Review of Systems Review Of Systems: See Below Constitutional: Reports: Malaise, Weakness. Denies: Fever HEENT: Reports: No Symptoms Respiratory: Denies: Shortness of Breath Cardiovascular: Denies: Chest Pain GI/Abdominal: Reports: Nausea. Denies: Vomiting : Reports: Other (Dysuria yesterday, diagnosed with UTI) Skin: Reports: No Symptoms Neurological: Denies: Headache ED EXAM, GENERAL - Physical Exam Exam: See Below Exam Limited By: No Limitations General Appearance: Alert, No Apparent Distress Throat/Mouth: Other (Normal hydration) Head: Atraumatic Respiratory/Chest: No Respiratory Distress Cardiovascular: Regular Rate, Rhythm. No: Tachycardia Neurological: Alert, Oriented Course - Vital Signs Last Recorded V/S: Last Vital Signs Temp 97.9 F 12/28/17 00:41 Pulse 68 12/28/17 00:41 Resp 16 12/28/17 00:41 BP 118/70 12/28/17 00:41 Pulse Ox 97 12/28/17 00:41 - Orders/Labs/Meds Meds: Medications Discontinued Medications Generic Name Dose Route Start Last Admin Trade Name Freq PRN Reason Stop Dose Admin Sodium Chloride 1,000 mls @ 1,000 mls/hr 12/28/17 01:00 12/28/17 00:58 Normal Saline IV 1,000 mls/hr ASDIRECTED GABE Administration Ondansetron HCl 4 mg 12/28/17 00:46 12/28/17 00:58 Zofran IVPUSH 12/28/17 00:47 4 mg ONETIME ONE Administration - Re-Assessments/Exams Free Text/Narrative Re-Assessment/Exam: 12/28/17 01:20 In addition to the Rocephin, patient was given 1 L normal saline and 4 mg of IV Zofran. She should recheck with her primary provider tomorrow if she needs to have additional outpatient medications. Departure - Departure Time of Disposition: 02:19 Disposition: Home, Self-Care 01 Condition: Fair Clinical Impression: Dehydration UTI (urinary tract infection) Qualifiers: Urinary tract infection type: acute cystitis Hematuria presence: without hematuria Qualified Code(s): N30.00 - Acute cystitis without hematuria - Discharge Information Instructions: Urinary Tract Infection, Adult, Dehydration, Adult Referrals: Sky Mares MD [Primary Care Provider] - Forms: ED Department Discharge Care Plan Goals: Continue any current prescribed medications increase diet as tolerated. Inform your primary provider if symptoms persist as you can be set up for outpatient fluids when necessary.
== END 2017-12-28 02:20 | disposition home or self-care (01) ==
LOC: JP.ED 00:12
DX: O09.511 Supervision of elderly primigravida, first trimester (principal); O99.281 Endocrine, nutritional and metabolic diseases complicating pregnancy, first trimester; E86.0 Dehydration; O23.41 Unspecified infection of urinary tract in pregnancy, first trimester; Z3A.09 9 weeks gestation of pregnancy
CPT/HCPCS: 96361; 96374; 99284; J2405; J7040; J7030

== ENCOUNTER 2018-03-16 00:53 | Observation (INO) | payer MEDICAID ==
[2018-03-16] MEDS ORDERED: Sodium Chloride 0.9% 1,000 ML IV SCH (01:30)
[2018-03-16] MEDS ORDERED: Ondansetron 4 MG Tab.DIS PO PRN (02:33)
--- NOTE | 2018-03-16 03:28 | PCM.LDHP ---
L&D History of Present Illness - General Date of Service: 03/16/18 Admit Problem/Dx: Patient Status Order with Admit Dx/Problem 03/16/18 02:33 Patient Status [ADT] Routine Admission Diagnosis/Problem Admission Diagnosis/Problem Bleeding Source of Information: Patient History Limitations: Reports: No Limitations - History of Present Illness Introduction:: 42 year old G7 P 6 with 5 previous classical c section presented with bright red vaginal bleeding. She is 20 1/7 weeks gestation with an KATIUSKA of 08/02/18. Scan equals dates for 8 weeks and 20 week US. Two vessel cord on US at 20 weeks. No first or second trimester screening. I removed a large clot from her vaginal on initial exam. No vaginal digital exam done. Placenta is anterior in the area of the classical incisions. FHT 89-150 although mostly slow. DANNY 12. Obvious funneling on US with membranes in vaginal canal. cervical length 2.7 cm. ABO A pos Present Illness Comments:: not really jose has intermittent discomfort. - Related Data Allergies/Adverse Reactions: Allergies Allergy/AdvReac Type Severity Reaction Status Date / Time No Known Allergies Allergy Verified 12/28/17 00:35 Home Medications: Home Meds Pyridoxine HCl [Vitamin B-6] 100 mg PO DAILY 12/17/17 [History] Past Medical History HEENT History: Reports: Cataract, Impaired Vision [employer] History: Reports: : 7 Para: 6 LMP (Approximate): (KATIUSKA 08/02/18) Musculoskeletal History: Reports: Fracture - Infectious Disease History Infectious Disease History: Reports: Chicken Pox - Past Surgical History HEENT Surgical History: Reports: Cataract Surgery Female Surgical History: Reports: Section Social & Family History - Tobacco Use Smoking Status *Q: Never Smoker Used Tobacco, but Quit: Yes Month/Year Tobacco Last Used: 25 years Second Hand Smoke Exposure: No - Caffeine Use Caffeine Use: Reports: None - Alcohol Use Days Per Week of Alcohol Use: 0 - Recreational Drug Use Recreational Drug Use: No H&P Review of Systems - Review of Systems: Review Of Systems: See Below General: Reports: Chills HEENT: Reports: No Symptoms Pulmonary: Reports: No Symptoms Cardiovascular: Reports: No Symptoms Gastrointestinal: Reports: Nausea, Vomiting Genitourinary: Reports: No Symptoms Musculoskeletal: Reports: No Symptoms Skin: Reports: No Symptoms Psychiatric: Reports: No Symptoms Neurological: Reports: No Symptoms Hematologic/Lymphatic: Reports: No Symptoms Immunologic: Reports: No Symptoms L&D Exam - Exam Exam: See Below - Vital Signs Vital Signs: Last Vital Signs Temp 98.1 F 03/16/18 02:41 Pulse 98 03/16/18 03:16 Resp 16 03/16/18 03:16 BP 118/65 03/16/18 03:16 Pulse Ox 97 03/16/18 03:16 Weight: 171 lb - OB Specific Fundal Height In cm: 20 Movement: Active Heart Tones: Present Presentation: Vertex (per ultrasound) - Exam General: Alert, Oriented HEENT: PERRLA, Mucosa Moist & [place], Pupils Equal Neck: Supple Lungs: Clear to Auscultation, Normal Respiratory Effort Cardiovascular: Regular Rate, Regular Rhythm GI/Abdominal Exam: Soft, No Distention Genitourinary: Enlarged uterus, Vaginal bleeding Extremities: Normal Inspection, No Pedal Edema Skin: Warm Neurological: Cranial Nerves Intact, Reflexes Equal Bilateral Psychiatric: Alert, Normal Affect, Normal Mood - Patient Data Lab Results Last 24 hrs: Laboratory Results - last 24 hr 03/16/18 03/16/18 03/16/18 Range/Units 02:30 02:30 02:30 WBC 10.9 (4.5-11.0) K/uL RBC 3.23 L (3.30-5.50) M/uL Hgb 10.1 L D (12.0-15.0) g/dL Hct 29.9 L (36.0-48.0) % MCV 93 (80-98) fL MCH 31 (27-31) pg MCHC 34 (32-36) % Plt Count 212 (150-400) K/uL PT 10.1 (9.5-12.0) sec INR 0.95 (0.80-1.20) APTT 22.0 L (27.0-36.0) sec Sodium 139 L (140-148) mmol/L Potassium 3.7 (3.6-5.2) mmol/L Chloride 104 (100-108) mmol/L Carbon Dioxide 22 (21-32) mmol/L Anion Gap 16.7 H (5.0-14.0) mmol/L BUN 14 (7-18) mg/dL Creatinine 0.7 (0.6-1.0) mg/dL Est Cr Clr Drug Dosing 107.18 mL/min Estimated GFR (MDRD) > 60 (>60) Glucose 90 (74-106) mg/dL Calcium 7.9 L (8.5-10.1) mg/dL Total Bilirubin 0.3 (0.2-1.0) mg/dL AST 18 (15-37) U/L ALT 16 (12-78) U/L Alkaline Phosphatase 46 (46-116) U/L Total Protein 6.2 L (6.4-8.2) g/dL Albumin 2.7 L (3.4-5.0) g/dL Globulin 3.5 (2.3-3.5) g/dL Albumin/Globulin Ratio 0.8 L (1.2-2.2) Result Diagrams: 03/16/18 02:30 03/16/18 02:30 - Problem List (1) , threatened, antepartum SNOMED Code(s): 82926915 ICD Code: O20.0 - THREATENED Status: Acute Current Visit: Yes (2) 20 weeks gestation of SNOMED Code(s): 58480786 ICD Code: Z3A.20 - 20 WEEKS GESTATION OF Status: Acute Current Visit: Yes (3) SNOMED Code(s): 64653198 ICD Code: Z34.90 - ENCNTR FOR SUPRVSN OF NORMAL , UNSP, UNSP TRIMESTER Status: Acute Current Visit: Yes Qualifiers: Weeks of gestation: 20 weeks Qualified Code(s): Z3A.20 - 20 weeks gestation of Problem List Initiated/Reviewed/Updated: Yes Orders Last 24hrs: Active Orders 24 hr Category Date Time Status Patient Status [ADT] Routine ADT 03/16/18 02:33 Active Antiembolic Devices [RC] .Routine Care 03/16/18 02:36 Active Bedrest Bathroom Privileges [RC] ASDIRECTED Care 03/16/18 02:33 Active Notify Provider [RC] PRN Care 03/16/18 02:33 Active OB Check [OM.PC] Click to Edit Care 03/16/18 01:05 Ordered VTE/DVT Education [RC] Click to Edit Care 03/16/18 02:36 Active Vital Signs [RC] PER UNIT ROUTINE Care 03/16/18 02:33 Active Clear Liquid Diet [DIET] Diet 03/16/18 Breakfast Active OB Ltd 1 or More Fetus [US] Routine Exams 03/16/18 03:04 Taken OB Transvaginal [US] Routine Exams 03/16/18 01:41 Taken RED BLOOD CELLS LP [BBK] Routine Lab 03/16/18 02:30 Received TYPE AND SCREEN [BBK] Routine Lab 03/16/18 02:30 Received Ondansetron [Zofran ODT] Med 03/16/18 02:33 Active 4 mg PO Q4H PRN Sodium Chloride 0.9% [Normal Saline] 1,000 ml Med 03/16/18 01:30 Active IV ASDIRECTED DVT/VTE Prophylaxis Reflex [OM.PC] Routine Oth 03/16/18 02:33 Ordered Peripad Count [WOMSER] Per Unit Routine Oth 03/16/18 02:36 Ordered Resuscitation Status Routine Resus Stat 03/16/18 02:33 Ordered Medication Orders Sodium Chloride (Normal Saline) 1,000 mls @ 150 mls/hr IV ASDIRECTED GABE Last Admin: 03/16/18 01:30 Dose: 150 mls/hr Ondansetron HCl (Zofran Odt) 4 mg PO Q4H PRN PRN Reason: Nausea/Vomiting Assessment/Plan Comment:: 03/16/18 42 year old with 5 classical c sections. with vaginal bleeding, cervical funneling, decreased cervical length, Concern for spontaneous loss. Also concern for potential accerta placenta from previous surgery. I have spoken with doctor West who is accepting transfer to [facility]
[2018-03-16 03:49] VITALS: BP 111/68
== END 2018-03-16 04:10 ==
LOC: JP.OBCHECK 00:53 → JP.OB 01:30
PROVIDERS: ADMIT Nurse Practitioner Family; ATTEND Nurse Practitioner Family
DX: O20.0 Threatened abortion (principal); Z3A.20 20 weeks gestation of pregnancy; Z79.899 Other long term (current) drug therapy
CPT/HCPCS: 36415; 36430; 76815; 76817; 80053; 85027; 85610; 85730; 86850; 86900; 86901; 86920; 86922; 99211; J7040; P9016; G0378; J7030

== ENCOUNTER 2022-01-09 13:51 | Emergency (ER) | payer MEDICAID ==
[2022-01-09] MEDS ORDERED: HYDROmorphone 1 MG/ML Syringe IM ONE (14:26)
[2022-01-09 15:07] VITALS: BP 116/81
[2022-01-09 15:08] VITALS: PULSE 72
== END 2022-01-09 15:16 | disposition home or self-care (01) ==
LOC: JP.ED 13:51
DX: S20.212A Contusion of left front wall of thorax, initial encounter (principal); W20.8XXA Other cause of strike by thrown, projected or falling object, initial encounter
CPT/HCPCS: 71046; 96372; 99283; J1170